=== PATIENT | male | born 1965 | race African-American/Black ===

== ENCOUNTER 2021-01-11 03:01 | Emergency (ER) | payer MEDICAID ==
[~2021-01-11] VITALS: Ht 175.3 cm; Wt 73.0 kg
[2021-01-11] MEDS ORDERED: ASPIRIN 81MG TABLET PO ONE (03:45)
[2021-01-11] MEDS ORDERED: FUROSEMIDE 40MG/4ML VIAL IV ONE (03:45)
[2021-01-11 04:03] LABS: BASOPHILS % 0.8 % (0.0-2.0); EOSINOPHILS % 0.1 % (0.0-5.0); HEMATOCRIT. 37.5 % (42.0-52.0); HEMOGLOBIN. 12.8 g/dL (14.0-18.0); LYMPHOCYTES % 12.4 % (20.0-50.0); MEAN CORPUSCULAR HEMOGLOBIN 27.3 pg (28.0-32.0); MEAN CORPUSCULAR VOLUME 79.7 fL (80.0-94.0); MEAN PLATELET VOLUME 8.9 fl (7.4-10.4); MONOCYTES % 9.3 % (2.0-8.0); NEUTROPHILS % 77.4 % (40.0-76.0); PLATELET 268 x1000/uL (130-400); RED CELL DISTRIBUTION WIDTH 13.1 % (11.6-14.6)
[2021-01-11] MEDS: NITROGLYCERIN 0.4MG TABLET SL SL PRN ×2 (04:03→04:12)
[2021-01-11 04:09] LABS: CHLORIDE 107 mEq/L (98-107)
[2021-01-11 04:13] LABS: ETHANOL BLOOD < 10 mg/dL
[2021-01-11 05:05] VITALS: BP 175/132
[2021-01-11 05:29] LABS: *AMPHETAMINES SCREEN URINE PRESUMTIVE POSITIVE (NEGATIVE); *BARBITURATES SCREEN URINE NEGATIVE (NEGATIVE); *BENZODIAZEPINES SCREEN URINE NEGATIVE (NEGATIVE); *COCAINE SCREEN URINE PRESUMTIVE POSITIVE (NEGATIVE); METHADONE URINE SCREEN NEGATIVE (NEGATIVE)
[2021-01-11 05:30] LABS: CANNABINOID URINE SCREEN NEGATIVE (NEGATIVE); OPIATES URINE SCREEN NEGATIVE (NEGATIVE); PHENCYCLIDINE URINE SCREEN NEGATIVE (NEGATIVE)
== END 2021-01-11 05:00 | disposition left against medical advice (07) ==
LOC: ER 03:01 → CANBEDREQ 05:08
DX: I16.0 Hypertensive urgency (principal); R77.8 Other specified abnormalities of plasma proteins; R00.0 Tachycardia, unspecified; I11.0 Hypertensive heart disease with heart failure; I50.9 Heart failure, unspecified; I25.2 Old myocardial infarction
CPT/HCPCS: 36415; 71045; 80053; 80305; 80320; 83880; 84484; 85025; 85379; 93005; 96374; 99285; J1940; Z7610; G0480